=== PATIENT | male | born 1935 | race Two or more races ===

== ENCOUNTER 2023-01-22 15:41 | Inpatient (IN) | payer OTHER ==
[~2023-01-22] VITALS: Ht 167.6 cm; Wt 68.0 kg
[~2023-01-22 15:41] MED LIST: PROTONIX40 MG PO; ZANTAC150 M3 PO
[2023-01-26] MEDS ORDERED: CLOPIDOGREL BIS75 MG PO (11:00)
[2023-01-26] MEDS ORDERED: LIPITOR40 M1 PO (11:00)
[2023-01-26] MEDS ORDERED: ELIQUIS5 MG PO (11:00)
[2023-01-26] MEDS ORDERED: AMLODIPINE BESY10 MG PO (11:00)
[2023-01-26] MEDS ORDERED: GLIMEPIRIDE4 MG PO (11:03)
== END 2023-01-26 15:02 | disposition designated cancer center or children's hospital (05) | DRG 65 ==
LOC: ER 15:41 → SEC-K 21:13 → MEDI 01-23 04:11
PROVIDERS: Emergency Medicine; General Practice; ADMIT Internal Medicine; ATTEND Internal Medicine
PROC: BW28ZZZ Computerized Tomography (CT Scan) of Head (ICD-10-PCS; principal; 2023-01-22)
PROC: B030ZZZ Magnetic Resonance Imaging (MRI) of Brain (ICD-10-PCS; 2023-01-22)
PROC: B246ZZZ Ultrasonography of Right and Left Heart (ICD-10-PCS; 2023-01-22)
PROC: B343ZZ3 Ultrasonography of Right Common Carotid Artery, Intravascular (ICD-10-PCS; 2023-01-22)
PROC: 4A12X4Z Monitoring of Cardiac Electrical Activity, External Approach (ICD-10-PCS; 2023-01-23)
DX: I63.9 Cerebral infarction, unspecified (principal); G45.8 Other transient cerebral ischemic attacks and related syndromes; I10 Essential (primary) hypertension; Z87.891 Personal history of nicotine dependence; I48.91 Unspecified atrial fibrillation; E11.65 Type 2 diabetes mellitus with hyperglycemia; E78.49 Other hyperlipidemia; Z79.4 Long term (current) use of insulin; I35.0 Nonrheumatic aortic (valve) stenosis; K21.9 Gastro-esophageal reflux disease without esophagitis
CPT/HCPCS: 70551